=== PATIENT | female | born 1995 | race African-American/Black ===

== ENCOUNTER 2021-03-19 11:25 | Day surgery (SDC) | payer OTHER ==
[2021-03-19 11:53] VITALS: BMI 33.3
[2021-03-19] MEDS ORDERED: hydrALAZINE 20 MG/ML VIAL SLOW IVP PRN (12:43)
[2021-03-19 14:50] LABS: SARS-CoV-2 NAA Rapid Test Not Detected (NotDetected)
== END 2021-03-19 13:58 | disposition home or self-care (01) ==
LOC: CSHLD/OP 11:25
PROVIDERS: ATTEND Family Medicine
DX: O99.891 Other specified diseases and conditions complicating pregnancy (principal); R10.9 Unspecified abdominal pain; M54.50 Low back pain, unspecified; O99.013 Anemia complicating pregnancy, third trimester; Z3A.31 31 weeks gestation of pregnancy; Z20.822 Contact with and (suspected) exposure to COVID-19
CPT/HCPCS: 0240U; 99283

== ENCOUNTER 2021-05-04 21:22 | Inpatient (IN) | payer OTHER ==
[2021-05-04 21:58] VITALS: BMI 33.3
[2021-05-04] MEDS ORDERED: Misoprostol 200 MCG TAB PR PRN (22:18)
[2021-05-04] MEDS ORDERED: Ondansetron PF 4 MG/2 ML Vial IVP PRN (22:18)
[2021-05-04] MEDS ORDERED: Ibuprofen 800 MG TAB PO PRN (22:18)
[2021-05-04] MEDS ORDERED: Butorphanol Tartrate 1 MG/ML VIAL SLOW IVP PRN (22:18)
[2021-05-04] MEDS ORDERED: Lidocaine 1% (PF) 30 ML VIAL SC PRN (22:18)
[2021-05-04] MEDS ORDERED: hydrALAZINE 20 MG/ML VIAL SLOW IVP PRN (22:18)
[2021-05-04] MEDS ORDERED: Acetaminophen 500 MG TAB PO PRN (22:18)
[2021-05-04] MEDS ORDERED: Promethazine HCl 25 MG/ML VIAL IM PRN (22:18)
[2021-05-04] MEDS ORDERED: NS w/ Oxytocin 30 units 500 ML IV SCH ×2 (22:30)
[2021-05-04 22:57] LABS: Hemoglobin 10.3 g/dL (12.0-15.5); Mean Corpuscular HGB CONC 31.4 g/dL (32.0-36.0); Mean Corpuscular Hemoglobin 21.6 pg (27.0-33.0); Mean Corpuscular Volume 68.8 fl (81.6-98.3); Mean Platelet Volume 10.1 fl (7.4-10.4); Platelet Count 274 10x3/uL (150-450); RBC Distribution Width 17.7 % (11.5-14.5); Red Blood Cell (RBC) Count 4.77 10x6/uL (3.90-5.03); White Blood Cell (WBC) Count 9.8 10x3/uL (3.5-10.5)
[2021-05-04 23:30] LABS: Hep B Surf Ag Non-Reactive S/CO (NonReactive); Syphilis Antibody Nonreactive (Nonreactive); Syphilis Antibody Index 0.04 S/CO (<1.00 Non-Reactive)
[2021-05-04 23:32] LABS: SARS-CoV-2 NAA Rapid Test Not Detected (NotDetected)
[2021-05-04 23:32] LABS: HBSAg Index 0.21 S/CO (0-0.99)
[2021-05-05] MEDS: Lactated Ringer's 1,000 ML IV SCH ×2 (05:24→16:24)
[2021-05-05] MEDS ORDERED: Fentanyl 2 mcg/Bup 0.1% Cadd 100 ML ONE (06:14)
[2021-05-05] MEDS ORDERED: Ondansetron PF 4 MG/2 ML Vial IVP PRN ×2 (06:41→14:09)
[2021-05-05] MEDS ORDERED: ePHEDrine Sulfate 50 MG/10 ML VIAL SLOW IVP PRN (06:41)
[2021-05-05] MEDS ORDERED: diphenhydrAMINE 50 MG/ML VIAL IVP PRN (06:41)
[2021-05-05] MEDS ORDERED: Promethazine HCl 25 MG/ML VIAL IM PRN (06:41)
[2021-05-05] MEDS ORDERED: Hydrocerin (Eucerin) Cream 120 gm Jar TOP PRN (06:41)
[2021-05-05] MEDS ORDERED: Naloxone HCl 0.4 mg/ml Vial IVP PRN ×2 (06:41)
[2021-05-05] MEDS ORDERED: Acetaminophen 325 MG TAB PO PRN (06:41)
[2021-05-05] MEDS ORDERED: Lactated Ringer's 500 ML IV PRN (06:41)
[2021-05-05] MEDS ORDERED: Fentanyl 2 mcg/Bupivacaine 0.1% Cassette 100 ML EPIDURAL SCH (06:45)
[2021-05-05] MEDS ORDERED: Communication Order-Pharmacy FS SCH (06:45)
[2021-05-05] MEDS ORDERED: Boostrix 0.5 ML (Tdap) VIAL IM ONE (14:09)
[2021-05-05] MEDS ORDERED: Benzocaine-Menthol 82.5 ML CAN TOP PRN (14:09)
[2021-05-05] MEDS ORDERED: hydrALAZINE 20 MG/ML VIAL SLOW IVP PRN (14:09)
[2021-05-05] MEDS ORDERED: diphenhydrAMINE 25 MG CAP PO PRN (14:09)
[2021-05-05] MEDS ORDERED: Milk Of Magnesia 30 ML UDCUP PO PRN (14:09)
[2021-05-05] MEDS ORDERED: Lanolin Ointment 7 GM TUBE TOP PRN (14:09)
[2021-05-05] MEDS ORDERED: Bisacodyl 10 MG SUPP PR PRN (14:09)
[2021-05-05] MEDS: Ferrous Sulfate 325 MG TAB PO SCH (16:24)
[2021-05-05] MEDS: Ibuprofen 800 MG TAB PO SCH (17:49)
[2021-05-06] MEDS: Docusate 100 MG CAP PO SCH ×2 (00:51→08:33)
[2021-05-06] MEDS: Ibuprofen 800 MG TAB PO SCH ×2 (00:51→08:33)
[2021-05-06] MEDS: HYDROcodone/Acetaminophen 5/325 mg Tablet PO PRN ×3 (02:23→10:55)
[2021-05-06] MEDS: Ferrous Sulfate 325 MG TAB PO SCH ×2 (07:43→08:34)
[2021-05-06] MEDS ORDERED: Prenatal Vitamin 1 TAB PO SCH (09:00)
[2021-05-06 11:05] VITALS: BP 109/66; TEMP 98.2
== END 2021-05-06 12:50 | disposition home or self-care (01) | DRG 807 ==
LOC: CSHLD/OP 21:22 → CSHLD 22:20 → CSHPP 05-05 13:38
PROVIDERS: ADMIT Family Medicine; ATTEND Family Medicine
PROC: 10E0XZZ Delivery of Products of Conception, External Approach (ICD-10-PCS; principal; 2021-05-04)
DX: O80 Encounter for full-term uncomplicated delivery (principal); Z37.0 Single live birth; Z3A.37 37 weeks gestation of pregnancy; Z20.822 Contact with and (suspected) exposure to COVID-19
CPT/HCPCS: 36415; 51702; 85027; 86780; 86850; 86870; 86900; 86901; 87340; 99285; J2405; J2590; J7120; U0002